=== PATIENT | female | born 2000 | race Caucasian/White ===

== ENCOUNTER 2022-09-19 14:01 | Outpatient (CLI) | payer OTHER, SELFPAY ==
--- NOTE | 2022-09-19 14:16 | XR_ITS ---
WS: [id number] Right knee, 4 views, 09/19/2022 Clinical Data: R KNEE PAIN Comparison: None. Findings: No fractures or dislocations are seen. The joint spaces are normal. The patella is intact. The soft t issues are unremarkable. XR/XR knee RT 4V [id number] Impression: Negative right knee. Kellgren-Jono Classification: NA
== END 2022-09-19 14:02 | disposition home or self-care (01) ==
PROVIDERS: PCP Nurse Practitioner Family; Visit Provider Nurse Practitioner Family
DX: M25.561 Pain in right knee (principal)
CPT/HCPCS: 73564

== ENCOUNTER 2022-11-07 14:20 | Outpatient (CLI) | payer OTHER, SELFPAY ==
[2022-11-07 15:29] LABS: Chol HDL Ratio 4.95 mg/dL (0.0-4.40); Cholesterol 193 mg/dL (0-200); Glucose 157 mg/dL (65-115); HDL Cholesterol 39 mg/dL (60-100); LDL Cholesterol Calculated 125 mg/dL (50-129); LDL HDL Ratio 3.21 RATIO (0.00-3.22); Triglycerides 146 mg/dL (0-150)
[2022-11-07 16:27] LABS: Estmated Average Glucose 94; Hemoglobin A1C 4.9 % (4.0-6.0)
== END 2022-11-07 14:21 | disposition home or self-care (01) ==
PROVIDERS: PCP Nurse Practitioner Family; Visit Provider Nurse Practitioner Family
DX: Z13.6 Encounter for screening for cardiovascular disorders (principal)
CPT/HCPCS: 36415; 80061; 82947; 83036

== ENCOUNTER 2023-06-08 11:36 | Outpatient (CLI) | payer OTHER, SELFPAY ==
--- NOTE | 2023-06-08 11:55 | XRR_ITS ---
PROCEDURE INFORMATION: Exam: XR Abdomen Exam date and time: 06/08/2023 11:57 AM Age: 23 years old Clinical indication: Nausea; Abdominal pain; Generalized; Patient HX: Abdomen pain for 1 month TECHNIQUE: Imaging protocol: Radiologic exam of the abdomen. Views: Frontal supine view of the abdomen. 1 View. COMPARISON: CT abdomen pelvis w con* [id number] 10/25/2017 11:03 PM FINDINGS: Gastrointestinal tract: Normal. No bowel dilation. Bones/joints: Unremarkable. XR/XR KUB [id number] IMPRESSION: No acute findings.
== END 2023-06-08 11:37 | disposition home or self-care (01) ==
PROVIDERS: PCP Nurse Practitioner Family; Visit Provider Nurse Practitioner Family
DX: R10.11 Right upper quadrant pain (principal)
CPT/HCPCS: 74018

== ENCOUNTER 2024-03-08 15:00 | Emergency (ER) | payer OTHER, SELFPAY ==
[2024-03-08 15:04] VITALS: BP 118/81; PULSE 130; RESP 18; TEMP 36.8; O2SAT 95; BMI 47.1
[2024-03-08 15:46] LABS: Basophils % 0.5 %; Eosinophils % 0.5 %; Hematocrit 40.6 % (36-47); Lymphocytes # 3.3 10^3/uL (0.8-4.8); Lymphocytes % 43.7 %; Mean Corpuscular Volume 87.5 fl (85-98); Mean Platelet Volume 9.8 fL (7.4-10.4); Monocytes # 0.8 10^3/uL (0.2-0.9); Monocytes % 10.3 %; Neutrophils % 44.6 %; Nucleated Red Blood Cells % 0 %; Platelet Count 260 10^3/cmm (157-399); Red Blood Count 4.64 10^6/uL (3.85-5.65); Red Cell Distribution Width 14.6 % (12.1-15.1); White Blood Count 7.64 10^3/uL (3.29-11.43)
[2024-03-08 15:53] LABS: Bilirubin Urine Neg (Negative); Blood Urine 3+ (Negative); Glucose Urine UA Norm (Normal); Ketones Urine 1+ (Negative); Nitrate Urine Positive (Negative); Protein Urine 3+ (Negative); Specific Gravity, Urine 1.015 (1.005-1.030); Urine Appearance Cloudy (CLEAR); Urine Color Yellow (Yellow); Urobilinogen Urine 1 mg/dL (Negative); pH Urine 6 (5-7)
[2024-03-08 15:54] LABS: Add Urine Microscopic? YES; Leukocyte Esterase Urine 2+ (Negative)
[2024-03-08 15:56] LABS: RBC Urine 50-80 /hpf (0-2); WBC Urine TOO NUMEROUS TO CNT /hpf (0-5)
[2024-03-08 15:57] LABS: Add Urine Culture? Yes; Bacteria Urine 3+ /hpf; Mucus Urine TRACE /hpf
[2024-03-08 15:59] LABS: HCG, Serum Qual Negative (Negative)
[2024-03-08 16:06] LABS: Alanine Aminotransferase 118 U/L (0-33); Albumin Level 3.8 g/dL (3.5-5.2); Alkaline Phosphatase 77 U/L (35-105); Anion Gap 17.7 (5-19); Aspartate Amino Transferase 94 U/L (0-32); Blood Urea Nitrogen 8 mg/dL (6-20); Calcium 9.3 mg/dL (8.5-10.5); Carbon Dioxide 23 mmol/L (22-29); Chloride 100 mmol/L (98-107); Creatinine Clr Calc Pharmacy 182.2363; Globulin 4.3 g/dL (1.3-4.6); Glomerular Filtration Rate 104.6 mL/min (90-130); Glucose 124 mg/dL (65-115); Lipase 21 U/L (13-60); Osmolality Calculated 284 mOsm/kg (285-295); Potassium 3.7 mmol/L (3.5-5.1); Sodium 137 mmol/L (136-145); Total Bilirubin 0.8 mg/dL (0.15-1.2); Total Protein 8.1 g/dL (6.6-8.7)
[2024-03-08 17:00] VITALS: BP 110/71; PULSE 76; RESP 16; O2SAT 96
--- NOTE | 2024-03-08 17:10 | CTR_ITS ---
PROCEDURE INFORMATION: Exam: CT Abdomen And Pelvis Without Contrast Exam date and time: 03/08/2024 5:17 PM Age: 23 years old Clinical indication: Abdominal pain; Localized; Right lower quadrant (rlq); Patient HX: Rlq pain that radiates into back/right flank area; Additional info: Right sided pain + hematuria TECHNIQUE: Imaging protocol: Computed tomography of the abdomen and pelvis without contrast. Radiation optimization: All CT scans at this facility use at least one of these dose optimization techniques: automated exposure control; mA and/or kV adjustment per patient size (includes targeted exams where dose is matched to clinical indication); or iterative reconstruction. COMPARISON: CT abdomen pelvis w con* [id number] 10/25/2017 11:03 PM RADIATION DOSE METRICS: Total DLP (mGy-cm): 1477 FINDINGS: Lungs: Lung bases are clear. No pleural effusion. Liver: Normal. No mass. Gallbladder and biliary ducts: Normal. No calcified stones. No ductal dilation. Pancreas: Normal. No ductal dilation. Spleen: Mild splenomegaly is noted. Adrenal glands: Normal. No mass. Kidneys and ureters: There is mild dilatation of the entire right ureter and the dilatation extends down to the bladder. I see no ureteral stone. Stomach and bowel: Unremarkable. No obstruction. No mucosal thickening. Appendix: No evidence of appendicitis. Intraperitoneal space: Unremarkable. No free air. No significant fluid collection. Vasculature: Unremarkable. No abdominal aortic aneurysm. Lymph nodes: Unremarkable. No enlarged lymph nodes. Urinary bladder: See Kidneys and ureters finding. Reproductive: Unremarkable as visualized. Bones/joints: Unremarkable. No acute fracture. Soft tissues: Unremarkable. CT/CT kidney stone [id number] IMPRESSION: 1. Mild right ureteral dilatation with no evidence of stone. This may be due to recent stone passage but I cannot exclude pyelonephritis 2. Stable splenomegaly
--- NOTE | 2024-03-08 17:10 | W.ED.ABDPA2 ---
HPI - Abdominal Pain General: Chief Complaint: Abdominal Pain Stated Complaint: lower right side abd pain Time Seen by Provider: 03/08/24 17:05 Source: patient Mode of arrival: ambulatory Limitations: no limitations History of Present Illness: Patient is a 23-year-old female presenting to the emergency department complaining of right-sided pain for the past 2 days. Patient states the pain is to her right lower abdomen and migrates into her right lower back across her right flank. She states that she has been taking ibuprofen and Tylenol and that this seems to help. She also reports that any movement whatsoever will worsen her pain, and it is improved with rest. She is not reporting any urinary symptoms at this time and has no history of kidney stones. She is noting some nausea, and states that her pain right now at rest is currently a 2/10. She does still have her appendix and gallbladder. She denies any changes in bowel habits, chest pain, breathing difficulties, palpitations, syncope, or any other symptoms at this time. MD elicited complaint: abdominal pain and flank pain Pertinent past history: none Onset (ago): day(s) Pain Consistency: constant Location: RLQ and R flank Pain scale (0-10): 2 Radiation: back Exacerbating factors: movement Relieving factors: medication and rest Associated Symptoms: Reports nausea; Denies chills, constipation, diarrhea, dysuria, fever(s), hematuria and vomiting Treatments prior to arrival: NSAIDs Review of Systems General: Reports: 10 or more systems reviewed and unremarkable except in HPI and below Const: Denies: fever(s), chills or fatigue Eyes: Denies: change in vision ENMT: Denies: throat pain, ear or mastoid pain or nasal discharge Card: Denies: chest pain, palpitations, swelling of feet/ankles or lightheadedness Resp: Denies: dyspnea, productive cough or wheezing GI: Reports: abdominal pain and nausea; Denies: vomiting, diarrhea or constipation : Reports: flank pain; Denies: difficulty voiding, dysuria, urinary frequency or hematuria Musc: Reports: back pain; Denies: neck pain or joint pain Skin/Breast: Denies: rash Neuro: Denies: headache(s), numbness in extremities or weakness in extremities Physical Exam Const: COMMON NORMALS: no acute distress, average body habitus, patient oriented x3, no limitations, healthy appearing, alert and well nourished GENERAL APPEARANCE: cooperative and comfortable NUTRITIONAL APPEARANCE: obese ORIENTATION/CONSCIOUSNESS: Yes awake HENMT: COMMON NORMALS: normocephalic, atraumatic, hearing grossly normal bilaterally, external ears normal, Normal external nose present, Normal nasal mucous membranes and turbinates present and moist oral mucous membranes HEAD & SCALP: normocephalic and atraumatic NOSE: Normal external nose present and Normal nasal mucous membranes and turbinates present EXTERNAL EAR: Yes external ears normal Eye: COMMON NORMALS: Equal, round and reactive pupils present, EOMs intact bilaterally, conjunctivae normal and normal visual mejia by confrontation CONJUNCTIVA: Yes conjunctivae normal PUPIL: Yes Equal, round and reactive pupils present Neck/C-Spine: COMMON NORMALS: full ROM, supple, no meningeal signs and no JVD Resp: COMMON NORMALS: normal respiratory effort, No retractions, No use of accessory muscles and clear to auscultation bilaterally AUSCULTATION: clear to auscultation bilaterally, no crackles, no rales, no rhonchi and no wheezes Cardio: COMMON NORMALS: no JVD, regular rate, regular rhythm, S1 normal heart sound present, S2 normal heart sound present, No gallops present (Cardio), No clicks present (Cardio), No murmurs present (Cardio), No rub (Cardio) and Peripheral pulses 2+ throughout RATE: regular rate RHYTHM: regular rhythm HEART SOUNDS: S1 normal heart sound present and S2 normal heart sound present PERIPHERAL PULSES: Peripheral pulses 2+ throughout GI: COMMON NORMALS: Normal to inspection, nondistended, normoactive bowel sounds present, Soft to palpation, No hepatosplenomegaly present and no masses INSPECTION: Yes central obesity AUSCULTATION: Yes normoactive bowel sounds PALPATION: Yes Soft to palpation, No Guarding due to palpation present (GI), No Rigid due to palpation and Yes No hepatosplenomegaly present RECTAL EXAM: deferred OTHER: Mild reproducible tenderness to palpation of the right upper and lower quadrants. : COMMON NORMALS: Yes no CVA tenderness BLADDER/KIDNEY EXAM: Yes no CVA tenderness Back/Pelvis: COMMON NORMALS: no CVA tenderness OTHER: Mild reproducible tenderness to palpation of the right lower lumbar muscles. Extremity: COMMON NORMALS: normal to inspection and full ROM Neuro: COMMON NORMALS: patient oriented x3, moves all extremities, no focal motor deficits and no sensory deficits noted SENSORIUM/ORIENTATION: Yes alert MENINGEAL SIGNS: Yes no meningeal signs Psych: COMMON NORMALS: mental status grossly normal, cooperative and speech normal SPEECH: Yes normal speech Skin: COMMON NORMALS: no rashes or lesions noted GENERAL SKIN EXAM: no rashes or lesions noted Course Vital Signs: Vital signs: Vital Signs Temperature 98.2 F 03/08/24 15:04 Pulse Rate 109 H 03/08/24 17:30 Respiratory Rate 18 03/08/24 17:30 Blood Pressure 112/85 03/08/24 17:30 Pulse Oximetry 95 03/08/24 17:30 Oxygen Delivery Me thod Room Air 03/08/24 17:30 MDM - Abdominal Pain Medical Decision Making Patient presented for 2 days of right-sided pain, no history of kidney stones or urinary symptoms. Also still has her gallbladder and appendix. On arrival she was tachycardic, likely secondary to pain. Her physical examination did reveal her to be in no acute distress, though there was some reproducible tenderness to palpation of the right lower abdomen and right lower back. Her blood work did not reveal any acute signs of active infection, and metabolic panel does not reveal any signs of acute kidney injury or other abnormality. Slight elevation in LFTs of which I told patient to follow-up with primary care for. Her urinalysis did reveal evidence of infection and presence of blood, so I ordered a CT to rule out kidney stone. The CT was negative for stone though did comment on potential passage of stone or active ascending urinary tract infection. Patient will be treated with ciprofloxacin and she will return with any new or worsening of symptoms. She is informed to increase her fluid intake and take Tylenol and ibuprofen at home as this has been working for her. Care of patient discussed with supervising ED physician, Dr. Shafer, who agrees with disposition at this time. Lab Data 03/08/24 15:39 03/08/24 15:39 Labs/Radiology: Radiology Impressions Abdomen/Pelvis CT 03/08/24 17:10 IMPRESSION: 1. Mild right ureteral dilatation with no evidence of stone. This may be due to recent stone passage but I cannot exclude pyelonephritis 2. Stable splenomegaly Laboratory Results WBC 7.64 10^3/uL (3.29-11.43) 03/08/24 15:39 RBC 4.64 10^6/uL (3.85-5.65) 03/08/24 15:39 Hgb 13.00 g/dL (11.27-16.99) 03/08/24 15:39 Hct 40.6 % (36-47) 03/08/24 15:39 MCV 87.5 fl (85-98) 03/08/24 15:39 MCH 28.0 pg (27-33) 03/08/24 15:39 MCHC 32.0 g/dL (30-55) 03/08/24 15:39 RDW 14.6 % (12.1-15.1) 03/08/24 15:39 Plt Count 260 10^3/cmm (157-399) 03/08/24 15:39 MPV 9.8 fL (7.4-10.4) 03/08/24 15:39 Neut % (Auto) 44.6 % 03/08/24 15:39 Lymph % (Auto) 43.7 % 03/08/24 15:39 [place] % (Auto) 10.3 % 03/08/24 15:39 Eos % (Auto) 0.5 % 03/08/24 15:39 Baso % (Auto) 0.5 % 03/08/24 15:39 Neut # (Auto) 3.40 10^3/uL (1.8-7.7) 03/08/24 15:39 Lymph # (Auto) 3.3 10^3/uL (0.8-4.8) 03/08/24 15:39 [place] # (Auto) 0.8 10^3/uL (0.2-0.9) 03/08/24 15:39 Eos # (Auto) 0.0 10^3/uL (0.0-0.8) 03/08/24 15:39 Baso # (Auto) 0.0 10^3/uL (0.0-0.1) 03/08/24 15:39 Nucleated RBC % (auto) 0 % 03/08/24 15:39 Nucleated RBCs # 0.0 /100WBC 03/08/24 15:39 Sodium 137 mmol/L (136-145) 03/08/24 15:39 Potassium 3.7 mmol/L (3.5-5.1) 03/08/24 15:39 Chloride 100 mmol/L (98-107) 03/08/24 15:39 Carbon Dioxide 23 mmol/L (22-29) 03/08/24 15:39 Anion Gap 17.7 (5-19) 03/08/24 15:39 BUN 8 mg/dL (6-20) 03/08/24 15:39 Creatinine 0.7 mg/dL (0.5-0.9) 03/08/24 15:39 GFR Calculation 104.6 mL/min (90-130) 03/08/24 15:39 Glucose 124 mg/dL (65-115) H 03/08/24 15:39 Calculated Osmolality 284 mOsm/kg (285-295) L 03/08/24 15:39 Calcium 9.3 mg/dL (8.5-10.5) 03/08/24 15:39 Total Bilirubin 0.8 mg/dL (0.15-1.2) 03/08/24 15:39 AST 94 U/L (0-32) H 03/08/24 15:39 ALT 118 U/L (0-33) H 03/08/24 15:39 Alkaline Phosphatase 77 U/L (35-105) 03/08/24 15:39 Total Protein 8.1 g/dL (6.6-8.7) 03/08/24 15:39 Albumin 3.8 g/dL (3.5-5.2) 03/08/24 15:39 Globulin 4.3 g/dL (1.3-4.6) 03/08/24 15:39 Lipase 21 U/L (13-60) 03/08/24 15:39 HCG, Qual Negative (Negative) 03/08/24 15:39 Urine Color Yellow (Yellow) 03/08/24 15:20 Urine Appearance Cloudy (CLEAR) A 03/08/24 15:20 Urine pH 6 (5-7) 03/08/24 15:20 Ur Specific [place] 1.015 (1.005-1.030) 03/08/24 15:20 Urine Protein 3+ (Negative) H 03/08/24 15:20 Urine Glucose (UA) Norm (Normal) 03/08/24 15:20 Urine Ketones 1+ (Negative) H 03/08/24 15:20 Urine Blood 3+ (Negative) H 03/08/24 15:20 Urine Nitrate Positive (Negative) H 03/08/24 15:20 Urine Bilirubin Neg (Negative) 03/08/24 15:20 Urine Urobilinogen 1 mg/dL (Negative) H 03/08/24 15:20 Ur Leukocyte Esterase 2+ (Negative) H 03/08/24 15:20 Urine RBC 50-80 /hpf (0-2) H 03/08/24 15:20 Urine WBC Too numerous to cnt /hpf (0-5) H 03/08/24 15:20 Ur Squamous Epith Cells 5-10 /hpf (0-5) H 03/08/24 15:20 Amorphous Sediment Not Reportable 03/08/24 15:20 Urine Bacteria 3+ /hpf (NONE) H 03/08/24 15:20 Urine Mucus Trace /hpf 03/08/24 15:20 All radiology interpretation(s) finalized by discharge Discharge Plan Discharge Patient Disposition: Home Clinical Impression: Pyelonephritis Condition: Stable Prescriptions: New Cipro 500 mg tablet 500 mg PO BID 10 Days Qty: 20 0RF Discharge Orders: Discharge ED (Routine); Ordered 03/08/24 Ordered By: Collin Gonzalez Referrals: Catherine Okeefe, [employer] [Primary Care Provider] - Discharge Diet: Usual diet Discharge Activity: Increase activity as tolerated Patient Instructions: Pyelonephritis Activity Restrictions/Additional Instructions: Take antibiotics as prescribed. Tylenol or ibuprofen at home for pain. Plenty of fluids. Follow-up with primary care and return with any new or worsening symptoms. Coding Level of Care Code ED Alternative Medicine Practitioner for Ayden Hernández
[2024-03-08] MEDS: metoclopramide 5 mg/mL SDV 2 mL 10 MG IVP (17:27)
[2024-03-08] MEDS: morphine 4 mg/mL SDV 1 mL IVP (17:27)
[2024-03-08 17:30] VITALS: BP 112/85; PULSE 109; RESP 18; O2SAT 95
[2024-03-08] MEDS: sodium chloride 0.9% 1,000 ML 999 ML IV (17:32)
[2024-03-08 18:00] VITALS: BP 98/65; PULSE 102; RESP 14; O2SAT 93
[2024-03-08] MEDS: ciprofloxacin 500 mg Tablet PO (18:07)
== END 2024-03-08 18:18 | disposition home or self-care (01) ==
PROVIDERS: Emergency Medicine; Emergency Provider Physician Assistant; PCP Nurse Practitioner Family
DX: N12 Tubulo-interstitial nephritis, not specified as acute or chronic (principal)
CPT/HCPCS: 36415; 74176; 80053; 81001; 83690; 84703; 85025; 87086; 96361; 96374; 96375; 99285; J2270; J2765; J7030

== ENCOUNTER 2024-03-24 02:37 | Emergency (ER) | payer OTHER, SELFPAY ==
[2024-03-24] VITALS (7 sets, daily range): BP systolic 94–139; BP diastolic 59–92; PULSE 62–115; RESP 15–18; O2SAT 95–100; BMI 47.0
--- NOTE | 2024-03-24 02:45 | USR_ITS ---
PROCEDURE INFORMATION: Exam: US Abdomen, Limited; Right Upper Quadrant Exam date and time: 03/24/2024 3:08 AM Age: 23 years old Clinical indication: Abdominal pain; Other: Ruq pain x 5 hours; Additional info: Right upper quadrant pain, concern for cholecystitis TECHNIQUE: Imaging protocol: Real time ultrasound of the abdomen with image documentation. Limited exam focused on the right upper quadrant. COMPARISON: US abdomen limited [id number] 09/25/2021 11:35 AM FINDINGS: Liver: Liver is diffusely increased in echogenicity, most commonly seen in hepatic steatosis, though other forms of parenchymal liver disease could have a similar appearance. This limits evaluation for subtle isoechoic masses but no masses are seen. Patent main portal vein with normal direction of flow. Gallbladder: Gallstones and sludge noted. Borderline wall thickening measuring 0.3 cm. Positive sonographic Lepe's sign. Biliary ducts: Normal. No stones. No dilation. Pancreas: Visualized pancreas is unremarkable. Right kidney: Normal. No mass. No hydronephrosis. US/US gall bladder [id number] IMPRESSION: 1. Imaging findings concerning for acute calculus cholecystitis. Further evaluation with HIDA scan should be considered in the adequate clinical setting. 2. Hyperechoic liver, which can be seen with fatty infiltration or hepatocellular disease.
--- NOTE | 2024-03-24 02:46 | ED_ITS ---
HPI - Abdominal Pain 2 General: Chief Complaint: Abdominal Pain Stated Complaint: Upper right abd pain Time Seen by Provider: 03/24/24 02:40 History of Present Illness: 23-year-old female who presents emergenc y room with right upper quadrant and epigastric pain with nausea and vomiting that started about 5 hours ago. She has had quite a bit of vomiting she says. Pain is fairly severe in her right upper quadrant. She has had no abdominal surgeries in the past. She was treated for pyelonephritis about 2 weeks ago and completed a 7-day course of antibiotics and had gotten better. She says this is completely different. No fevers. No chest pain. No shortness of breath. No dysuria. Review of Systems 2 Narrative: Constitutional symptoms: Negative except as documented in HPI. Skin symptoms: Negative except as documented in HPI. Eye symptoms: Negative except as documented in HPI. ENMT symptoms: Negative except as documented in HPI. Respiratory symptoms: Negative except as documented in HPI. Cardiovascular symptoms: Negative except as documented in HPI. Gastrointestinal symptoms: Negative except as documented in HPI. Genitourinary symptoms: Negative except as documented in HPI. Musculoskeletal symptoms: Negative except as documented in HPI. Neurologic symptoms: Negative except as documented in HPI. Psychiatric symptoms: Negative except as documented in HPI. Endocrine symptoms: Negative except as documented in HPI. Physical Exam 2 Narrative: EXAM NARRATIVE: General: Alert, no acute distress. Skin: Warm, dry. Head: Normocephalic, atraumatic. Neck: Supple, trachea midline. Eye: Extraocular movements are intact. Ears, nose, mouth and throat: Tacky oral mucosa Cardiovascular: Regular, Normal peripheral perfusion. Respiratory: Lungs are clear to auscultation, respirations are non-labored, breath sounds are equal, Symmetrical chest wall expansion. Gastrointestinal: Soft, moderate right upper quadrant tenderness, Non distended Musculoskeletal: Normal ROM, no deformity. Neurological: Alert and oriented, No focal neurological deficit observed. Psychiatric: Cooperative, appropriate mood & affect. Course 2 Vital Signs: Vital signs: Vital Signs Pulse Rate 69 03/24/24 05:03 Respiratory Rate 15 03/24/24 02:41 Blood Pressure 110/73 03/24/24 05:03 Pulse Oximetry 100 03/24/24 05:03 Oxygen Delivery Me thod Room Air 03/24/24 04:03 MDM - Abdominal Pain Medical Decision Making Differential diagnosis for patient presenting with right upper quadrant abdominal pain including but not limited to and based on the above HPI, review of systems and physical exam: Cholelithiasis or cholecystitis. Hepatitis. Diverticulitis. Constipation. Ureterolithiasis. Urinary tract infection. Appendicitis. colitis. small bowel obstruction. crohn's flare. pancreatitis. gastritis. peptic ulcer. Aortic disection. Workup including imaging and lab work replaced based on the above differential, history and exam to evaluate differential diagnosis Lab Review: Laboratory results were reviewed and interpreted by myself the emergency room physician. No leukocytosis. No anemia. BUN/creatinine are normal. Patient's liver function are mildly elevated and actually slightly decreased from lab work done about 2 weeks ago. Alk phos is not elevated. Ultrasound of the gallbladder shows findings concerning for acute calculus cholecystitis. This was reviewed and interpreted by myself the emergency room physician. I also reviewed the radiology report. I reviewed the patient's medical record. Reexamination: Patient says she feels quite a bit better after having Toradol and fluids. No acute distress at this time. No increased work of breathing. Consultation: I spoke with the general surgeon on-call . He agrees with Kim for antibiotics and observation admission. Assessment and plan: Acute calculus cholecystitis -IV Zosyn, IV Zofran, IV Toradol, normal saline bolus. -I discussed the patient with the general surgeon on-call who is admitting the patient. - Discussed findings and plan with patient. Answered any questions. - All laboratory values were reviewed and interpreted personally by myself, the ER physician - All imaging was reviewed and interpreted personally by myself, the ER physician. - Evaluation and treatment of this problem were appropriate in the emergency setting Lab Data 03/24/24 02:46 03/24/24 02:46 Labs/Radiology: Radiology Impressions Gallbladder Ultrasound 03/24/24 02:45 IMPRESSION: 1. Imaging findings concerning for acute calculus cholecystitis. Further evaluation with HIDA scan should be considered in the adequate clinical setting. 2. Hyperechoic liver, which can be seen with fatty infiltration or hepatocellular disease. Laboratory Results WBC 7.19 10^3/uL (3.29-11.43) 03/24/24 02:46 RBC 4.86 10^6/uL (3.85-5.65) 03/24/24 02:46 Hgb 13.40 g/dL (11.27-16.99) 03/24/24 02:46 Hct 42.2 % (36-47) 03/24/24 02:46 MCV 86.8 fl (85-98) 03/24/24 02:46 MCH 27.6 pg (27-33) 03/24/24 02:46 MCHC 31.8 g/dL (30-55) 03/24/24 02:46 RDW 14.3 % (12.1-15.1) 03/24/24 02:46 Plt Count 303 10^3/cmm (157-399) 03/24/24 02:46 MPV 10.1 fL (7.4-10.4) 03/24/24 02:46 Neut % (Auto) 43.1 % 03/24/24 02:46 Lymph % (Auto) 44.1 % 03/24/24 02:46 [place] % (Auto) 10.4 % 03/24/24 02:46 Eos % (Auto) 1.9 % 03/24/24 02:46 Baso % (Auto) 0.4 % 03/24/24 02:46 Neut # (Auto) 3.09 10^3/uL (1.8-7.7) 03/24/24 02:46 Lymph # (Auto) 3.2 10^3/uL (0.8-4.8) 03/24/24 02:46 [place] # (Auto) 0.8 10^3/uL (0.2-0.9) 03/24/24 02:46 Eos # (Auto) 0.1 10^3/uL (0.0-0.8) 03/24/24 02:46 Baso # (Auto) 0.0 10^3/uL (0.0-0.1) 03/24/24 02:46 Nucleated RBC % (auto) 0 % 03/24/24 02:46 Nucleated RBCs # 0.0 /100WBC 03/24/24 02:46 Sodium 138 mmol/L (136-145) 03/24/24 02:46 Potassium 3.9 mmol/L (3.5-5.1) 03/24/24 02:46 Chloride 104 mmol/L (98-107) 03/24/24 02:46 Carbon Dioxide 22 mmol/L (22-29) 03/24/24 02:46 Anion Gap 15.9 (5-19) 03/24/24 02:46 BUN 15 mg/dL (6-20) 03/24/24 02:46 Creatinine 0.8 mg/dL (0.5-0.9) 03/24/24 02:46 GFR Calculation 89.7 mL/min (90-130) L 03/24/24 02:46 Glucose 100 mg/dL (65-115) 03/24/24 02:46 Calculated Osmolality 287 mOsm/kg (285-295) 03/24/24 02:46 Lactic Acid 0.9 mmol/L (0.5-2.2) 03/24/24 02:46 Calcium 9.3 mg/dL (8.5-10.5) 03/24/24 02:46 Total Bilirubin 0.6 mg/dL (0.15-1.2) 03/24/24 02:46 AST 93 U/L (0-32) H 03/24/24 02:46 ALT 83 U/L (0-33) H 03/24/24 02:46 Alkaline Phosphatase 76 U/L (35-105) 03/24/24 02:46 C-Reactive Protein 3.2 mg/L (0.0-4.9) 03/24/24 02:46 Total Protein 8.3 g/dL (6.6-8.7) 03/24/24 02:46 Albumin 4.2 g/dL (3.5-5.2) 03/24/24 02:46 Globulin 4.1 g/dL (1.3-4.6) 03/24/24 02:46 Lipase 32 U/L (13-60) 03/24/24 02:46 HCG, Qual Negative (Negative) 03/24/24 02:49 Urine Color Yellow (Yellow) 03/24/24 02:49 Urine Appearance Slightly cloudy (CLEAR) 03/24/24 02:49 Urine pH 5 (5-7) 03/24/24 02:49 Ur Specific [place] 1.025 (1.005-1.030) 03/24/24 02:49 Urine Protein Trace (Negative) 03/24/24 02:49 Urine Glucose (UA) Norm (Normal) 03/24/24 02:49 Urine Ketones 1+ (Negative) H 03/24/24 02:49 Urine Blood Neg (Negative) 03/24/24 02:49 Urine Nitrate Negative (Negative) 03/24/24 02:49 Urine Bilirubin Neg (Negative) 03/24/24 02:49 Urine Urobilinogen 1 mg/dL (Negative) H 03/24/24 02:49 Ur Leukocyte Esterase Trace (Negative) H 03/24/24 02:49 Urine RBC None /hpf (0-2) 03/24/24 02:49 Urine WBC 0-4 /hpf (0-5) H 03/24/24 02:49 Ur Squamous Epith Cells 5-10 /hpf (0-5) H 03/24/24 02:49 Amorphous Sediment Not Reportable 03/24/24 02:49 Urine Bacteria 1+ /hpf (NONE) H 03/24/24 02:49 All radiology interpretation(s) finalized by discharge Discharge Plan Discharge Patient Disposition: Placed in Observation Clinical Impression: Acute cholecystitis Coding Level of Care Code ED Architectural Engineer for Ayden Hernández
[2024-03-24 02:52] LABS: Basophils % 0.4 %; Eosinophils # 0.1 10^3/uL (0.0-0.8); Eosinophils % 1.9 %; Hematocrit 42.2 % (36-47); Lymphocytes # 3.2 10^3/uL (0.8-4.8); Lymphocytes % 44.1 %; Mean Corpuscular HGB Conc 31.8 g/dL (30-55); Mean Corpuscular Hemoglobin 27.6 pg (27-33); Mean Corpuscular Volume 86.8 fl (85-98); Mean Platelet Volume 10.1 fL (7.4-10.4); Monocytes # 0.8 10^3/uL (0.2-0.9); Monocytes % 10.4 %; Neutrophils # 3.09 10^3/uL (1.8-7.7); Neutrophils % 43.1 %; Nucleated Red Blood Cells % 0 %; Platelet Count 303 10^3/cmm (157-399); Red Blood Count 4.86 10^6/uL (3.85-5.65); Red Cell Distribution Width 14.3 % (12.1-15.1); White Blood Count 7.19 10^3/uL (3.29-11.43)
[2024-03-24 02:58] LABS: HCG Qualitative Urine. Negative (Negative)
[2024-03-24] MEDS: sodium chloride 0.9% 1,000 ML 999 ML IV (02:58)
[2024-03-24] MEDS: ketorolac 30 mg/mL INJ IVP (02:58)
[2024-03-24] MEDS: ondansetron 2 mg/ML SDV 2 mL 8 MG IVP (02:59)
[2024-03-24 03:10] LABS: Add Urine Culture? No; Bacteria Urine 1+ /hpf; Bilirubin Urine Neg (Negative); Blood Urine Neg (Negative); Glucose Urine UA Norm (Normal); Ketones Urine 1+ (Negative); Leukocyte Esterase Urine Trace (Negative); Nitrate Urine Negative (Negative); Protein Urine Trace (Negative); Specific Gravity, Urine 1.025 (1.005-1.030); Urine Appearance Slightly Cloudy (CLEAR); Urine Color Yellow (Yellow); Urobilinogen Urine 1 mg/dL (Negative); WBC Urine 0-4 /hpf (0-5); pH Urine 5 (5-7)
[2024-03-24 03:13] LABS: Alanine Aminotransferase 83 U/L (0-33); Albumin Level 4.2 g/dL (3.5-5.2); Alkaline Phosphatase 76 U/L (35-105); Anion Gap 15.9 (5-19); Aspartate Amino Transferase 93 U/L (0-32); Blood Urea Nitrogen 15 mg/dL (6-20); C Reactive Protein 3.2 mg/L (0.0-4.9); Calcium 9.3 mg/dL (8.5-10.5); Carbon Dioxide 22 mmol/L (22-29); Chloride 104 mmol/L (98-107); Creatinine Clr Calc Pharmacy 159.1413; Globulin 4.1 g/dL (1.3-4.6); Glomerular Filtration Rate 89.7 mL/min (90-130); Glucose 100 mg/dL (65-115); Lipase 32 U/L (13-60); Osmolality Calculated 287 mOsm/kg (285-295); Potassium 3.9 mmol/L (3.5-5.1); Sodium 138 mmol/L (136-145); Total Bilirubin 0.6 mg/dL (0.15-1.2); Total Protein 8.3 g/dL (6.6-8.7)
[2024-03-24 03:14] LABS: Lactic Sepsis W/Reflex 0.9 mmol/L (0.5-2.2)
[2024-03-24] MEDS: piperacillin-tazobactam 4.5 GM in sodium chloride 0.9% (plus) 50 ML IV (05:09)
--- NOTE | 2024-03-24 05:23 | PC.NURSE ---
Dr Celeste gave this nurse verbal order to put in order 4mg morphine once IVP and 4mg zofran once IVP.
[2024-03-24] MEDS: morphine 4 mg/mL SDV 1 mL IVP (05:27)
[2024-03-24] MEDS: ondansetron 2 mg/ML SDV 2 mL 4 MG IVP (05:28)
--- NOTE | 2024-03-24 05:57 | P.CONIM_ITS ---
Providers/Reason For Consult 2 Consulting Physician/Specialty*: General surgery Reason for Consult*: Right upper quadrant pain Primary Care Provider: Catherine Okeefe History of Present Illness History of Present Illness Alis Medellin is a 23 year old female with no significant past medical history except for obesity grade II. Presents to the hospital with about 5 hours of right upper quadrant abdominal pain nausea and vomiting. Per patient report she ate some fajitas yesterday at the [employer] restaurant and after that she started to have severe right upper quadrant abdominal pain associated with an episode of vomiting. Upon presentation to the emergency department she underwent ultrasound gallbladder which was read as having findings that may represent acute cholecystitis and therefore I was consulted. At the moment of my evaluation patient's symptoms have subsided abdominal pain has resolved. Review of Systems 2 General: Reports: 10 or more systems reviewed and unremarkable except in HPI and below Medications/Allergies Home Medications Medication Instructions Recorded Confirmed Last Taken Type amoxicillin 400 mg/5 mL oral 400 mg (5 mL) PO BID 7 days #70 mL 03/24/24 Unknown Rx suspension amoxicillin 875 mg-potassium 1 tab PO BID 10 days #20 tabs 03/24/24 Unknown Rx clavulanate 125 mg tablet diclofenac sodium 50 mg 50 mg PO Q12H #20 tabs 03/24/24 Unknown Rx tablet,delayed release diclofenac sodium 50 mg 50 mg PO Q12H #20 tabs 03/24/24 Unknown Rx tablet,delayed release hydrocodone 5 mg-acetaminophen 325 1 tab PO Q6H PRN pain #20 tabs 03/24/24 Unknown Rx mg tablet pantoprazole 40 mg tablet,delayed 40 mg PO DAILY 4 weeks #60 tabs 03/24/24 Unknown Rx release (Protonix) polyethylene glycol 3350 17 17 g PO DAILY #510 grams 03/24/24 Unknown Rx gram/dose oral powder (Miralax) Allergies Allergy/AdvReac Type Severity Reaction Status Date / Time Wheat Allergy Intermediate rash Uncoded 11/07/22 13:51 Vitals/I&O/Wt Last Vital Signs Pulse 69 03/24/24 05:03 Resp 18 03/24/24 05:27 BP 110/73 03/24/24 05:03 Pulse Ox 98 03/24/24 05:27 O2 Del Method Room Air 03/24/24 04:03 03/23/24 03/23/24 03/24/24 14:59 22:59 06:59 Intake Total 1000 / 1000 Balance 1000 / 1000 Weight last 48 hrs Weight 300 lb Physical Exam 2 Narrative: General : Patient is well developed , no acute distress, oriented x3 Head : Normal cephalic, a-traumatic. Nose : Mucous membranes are without erythema. Lungs : Equal chest rise bilaterally, no use of accessory muscles, trachea is midline. CV : Rate and rhythm are normal. Abdomen : Soft, ND, NT, no g/r/m Extremities : No edema. Upper extremities are normal bilaterally. Back : non-tender to palpation, no CVA tenderness. Data 03/24/24 02:46 03/24/24 02:46 A&P Assessment and plan (1) Biliary colic: (2) Cholelithiasis: Plan After complete history, physical examination and review of all available clinical data the following is my assessment. This is a 23-year-old female who presents to the hospital with right upper quadrant pain after having a very fatty heavy meal. Laboratory workup is unremarkable except for mild ovation of AST and ALT which are consistent with possibility of fatty liver disease. The ultrasound was read as a possible cholecystitis but my independent review of the imaging is the following, wall is only 3 mm, there is no pericholecystic fluid there is some is large and small stones in the gallbladder but otherwise no evidence of acute cholecystitis. Ultrasound findings do not meet criteria for acute cholecystitis at this time. Ultrasound also show evidence of fatty liver. We told his clinical findings and the fact that the patient abdominal exam has significantly improved by taking she presented with an episode of biliary colic rather than acute cholecystitis, the patient does not meet criteria for acute cholecystitis following TG18. I have extensive discussion with the patient regarding her overall health I have informed her that she will need to follow a low-fat, low processed food diet in order to improve her overall health and prevent worsening of her fatty liver and I do think that she will require gallbladder surgery that can be done as outpatient for symptomatic cholelithiasis. In the interim we will give her a short course of antibiotics and pain medication she received diet indications and is agreeable to follow with in the long-term. Patient can follow-up in my clinic in 1 to 2 weeks and then we can discuss timing for surgery. Coding Level of Care Code 18410 Diagnoses Biliary colic K80.50 Cholelithiasis K80.20
== END 2024-03-24 05:50 | disposition home or self-care (01) ==
PROVIDERS: Emergency Provider Emergency Medicine; PCP Nurse Practitioner Family
DX: K80.00 Calculus of gallbladder with acute cholecystitis without obstruction (principal)
CPT/HCPCS: 76705; 80053; 81001; 81025; 83605; 83690; 85025; 86140; 96361; 96374; 96375; 96376; 99285; J1885; J2270; J2405; J2543; J7030

== ENCOUNTER 2024-04-18 07:24 | Day surgery (SDC) | payer OTHER, SELFPAY ==
[2024-04-18] VITALS (16 sets, daily range): BP systolic 105–132; BP diastolic 69–88; PULSE 74–110; RESP 13–20; TEMP 36.6–36.7; O2SAT 91–100; BMI 43.0
[2024-04-18 07:54] LABS: OR HCG Qualitative Urine Negative (Negative)
[2024-04-18] MEDS: sodium chloride 0.9% 1,000 ML 30 ML IV (08:20)
[2024-04-18] MEDS: scopolamine 1.5 Patch 1 PATCH TRANSDERMA (08:20)
--- NOTE | 2024-04-18 08:34 | ANES.PREANE2 ---
Pre-Anesthetic Assessment Height/Weight: Height 1.7 m Weight 124.738 kg BP O2 Del Method 128/83 Room Air 04/18/24 08:20 04/18/24 08:03 Operation Date: 04/18/24 09:10 Proposed Procedures p Laparoscopic Cholecystectomy/ possible open 52213, 44600, K82.9(Not Applicable) - Collin Dixon MD Familial anesthetic complications: none Was Beta Mert taken within 24 hours: N/A Was Clonidine taken within 24 hours: N/A Last intake: Intake Last Liquid Date 04/17/24 Last Liquid Time 21:00 Last Solid Date 04/17/24 Last Solid Time 15:00 Social No alcohol and No tobacco Exam alert, oriented x 3, clear to auscultation bilaterally and regular rate & rhythm Airway Submandibular: within normal limits Cervical ROM: within normal limits Mallampati: Class II Dentition: full History/ROS No significant history except as noted Metabolic Morbid Obesity Anesthetic Plan ASA status: 2 Anesthesia: General Medications/Allergies Home Medications Medication Instructions Recorded Confirmed Last Taken Type hydrocodone 5 mg-acetaminophen 325 1 tab PO Q6H PRN pain #20 tabs 03/24/24 04/15/24 Unknown Rx mg tablet pantoprazole 40 mg tablet,delayed 40 mg PO DAILY 4 weeks #60 tabs 03/24/24 04/15/24 04/15/24 Rx release (Protonix) polyethylene glycol 3350 17 17 g PO DAILY #510 grams 03/24/24 04/15/24 Unknown Rx gram/dose oral powder (Miralax) meloxicam 15 mg tablet 15 mg PO DAILY 7 days #7 tabs 03/30/24 04/15/24 Unknown Rx ondansetron HCl 4 mg tablet 4 mg PO Q8H PRN nausea and 03/30/24 04/15/24 Unknown Rx vomiting 14 days #30 tabs Allergies Allergy/AdvReac Type Severity Reaction Status Date / Time Wheat Allergy Intermediate rash Uncoded 04/15/24 13:09 Current Medications Generic Name Dose Route Start Last Admin Trade Name Freq PRN Reason Stop Dose Admin Sodium Chloride 1,000 mls @ 30 mls/hr 04/18/24 07:45 04/18/24 08:20 Sodium Chloride 0.9% IV 04/19/24 07:44 30 mls/hr .Q24H GAIL Administration PFSH Anesthesia Social History Smoking and tobacco/nicotine status: never used tobacco/nicotine Data Anesthesia Cardiac Studies: Holter Monitor 11/10/22
--- NOTE | 2024-04-18 08:38 | W.PM.OPSUD ---
Surgery/Procedure H&P Update DATE OF PROCEDURE: April 18, 2024 DATE H&P PERFORMED: 03/30/24 H&P UPDATE INFORMATION: I have reviewed H&P completed within last 30 days, I have examined patient prior to procedure, No changes to prior documentation and H&P is in [facility] EMR on date indicated PLANNED PROCEDURE: Operation Date: 04/18/24 09:10 Proposed Procedures p Laparoscopic Cholecystectomy/ possible open 02225, 10605, K82.9(Not Applicable) - Collin Dixon MD
[2024-04-18] MEDS: ceFAZolin 3,000 MG in sodium chloride 0.9% (plus) 100 ML 200 MG IV (08:52)
[2024-04-18] MEDS: lidocaine-epi 1% PF 1:200,000 30 mL SDV 10 ML INJECTION (09:23)
[2024-04-18] MEDS: BUPivacaine 0.25% INJ 10 mL INJECTION (09:23)
--- NOTE | 2024-04-18 10:43 | P.OP_ITS ---
Operative Report Date of procedure: April 18, 2024 Pre-op diagnosis: Symptomatic cholelithiasis Post-op diagnosis: Same Post-op findings: Anterior cystic artery, significant inflammation at the level of the Calot's triangle Procedure done: Laparoscopic cholecystectomy Specimens removed/disposition: Gallbladder Surgeon: Collin Dixon MD Insulation Board Coater Operator: SAKSHI OR staff Estimated blood loss: 10 Brief History: 24-year-old female with history of symptomatic cholelithiasis who presents for laparoscopic hysterectomy after discussion of all risk and benefits. Procedure: Patient was brought into the OR, she was placed in a supine position. General anesthesia was given. The abdomen was prepped and draped in the usual sterile fashion. Timeout was conducted. The abdomen was accessed with an Optiview 5 mm trocar in the left upper quadrant, pneumoperitoneum was achieved and there was no evidence of visceral injury during entry. Additional 12 mm trocar was placed in the suprapubic umbilical location under direct visualization, additional 5 mm trocars were placed in the epigastrium right upper quadrant and right flank under direct visualization. The gallbladder was retracted cephalad, I then took down some adhesions from the omentum and the duodenum to the infundibulum this was done with blunt dissection. Then grabbed the infundibulum and retracted on the inferolateral direction, significant fat infiltration of the hepatocystic tr iangle was noted, the peritoneum anterior to the hepatocystic triangle was opened with electrocautery, this opening was covering the medial and lateral direction to the edges of the liver and then up to the site of the gallbladder to achieve better visualization. With careful dissection of the hepatocystic triangle I was able to notify the cystic duct and artery, the cystic artery was anterior to the dog and therefore I had to transected before proceeding with additional dissection, I did this by double clipped and the artery proximal and single clipped distally and then I cut. Additional careful dissection with blunt and sharp dissection was done the hepatocystic triangle, this level significant lamination was noted, I was able to individualize the cystic duct elevate the lower third of the gallbladder from the liver bed does not show any critical view of safety. The duct was topically proximally and single clipped distally and transected, the gallbladder was removed from the liver bed with electrocautery. The abdomen was irrigated and suction. The specimen was retrieved via the umbilical trocar site in an Endo Catch bag. The supraumbilical trocar site was then closed under direct visualization with a Delio-Han suture passer, this was done with #0 Vicryl. The epigastric right upper quadrant and right flank trocars were removed under direct visualization, the left upper quadrant trocar was used to acquire the pneumoperitoneum and subsequently removed. Wounds were closed in layers using 4 Monocryl for the skin. Dermabond was applied. At the end of the procedure all counts were correct the patient tolerated well the procedure and was transferred to PACU in stable condition.
[2024-04-18] MEDS: ondansetron 2 mg/ML SDV 2 mL 4 MG IVP ×2 (11:15→11:26)
[2024-04-18] MEDS: oxyCODONE 5 mg IR Tab/Cap PO (12:05)
--- NOTE | 2024-04-18 12:10 | ANE.PACU2 ---
Inpatient post-anesthesia follow up: Airway intact: Yes Vital signs: Temperature 98.0 F Pulse Rate 77 Respiratory Rate 13 Blood Pressure 114/77 Pulse Oximetry 95 Oxygen Delivery Me thod Room Air Oxygen Flow Rate 8 Fraction of Inspir ed Oxygen Hydration adequate: Yes Nausea and vomiting: No Pain level: 4 Mental status: Baseline
== END 2024-04-18 11:51 | disposition home or self-care (01) ==
PROVIDERS: Anesthesiology; PCP Nurse Practitioner Family; Visit Provider Surgery
PROC: 0FT44ZZ Resection of Gallbladder, Percutaneous Endoscopic Approach (ICD-10-PCS; CPT 47562; principal; 2024-04-18 09:00)
DX: K80.10 Calculus of gallbladder with chronic cholecystitis without obstruction (principal); E66.01 Morbid (severe) obesity due to excess calories; Z68.41 Body mass index [BMI] 40.0-44.9, adult
CPT/HCPCS: 47562; 81025; 88304; J0330; J0461; J0690; J1100; J1170; J1200; J1885; J2250; J2371; J2405; J2704; J2710; J3010; J3490; J7030

== ENCOUNTER → 2024-10-10 12:24 | Outpatient (BNVA) | payer OTHER, SELFPAY | PROVIDERS: PCP Nurse Practitioner Family; Visit Provider Nurse Practitioner Family | DX: R68.89 Other general symptoms and signs (principal); J10.1 Influenza due to other identified influenza virus with other respiratory manifestations | CPT/HCPCS: 87804 ==

== ENCOUNTER 2025-05-27 15:56 | Emergency (ER) | payer OTHER, SELFPAY ==
--- OUTSIDE RECORDS SUMMARY | 2025-03-10 08:15 | XMS_ITS | Continuity of Care Document ---
Author Organization [employer] [facility] Address [address] [place] [address] Phone Care Team Providers Care Color Drum Worker Name Role Phone Patricia Antoine Unavailable Unavailabl e Allergies, Adverse Reactions, Alerts Substance Reaction Status Criticality No Known Allergies Active No Inform ation Medications Medication Instructions Dosage Effective Dates (start - stop) Status Comments clotrimazole-betamethason e 1 %-0.05 % topical cream apply by topical route 2 times every day to the affected and surrounding areas of skin in the morning and evening as needed - Active medroxyprogesterone 150 mg/mL intramuscular suspension Administered in the office - No Longer Active Procedures Procedure Date Depo-Provera (medroxyprogesterone acetat e), per 1 mg URINE TEST OFFICE/OUTPATIENT VISIT EST Ther/Proph/Diag Injection - SC/IM Depo-Provera (medroxyprogesterone acetat e), per 1 mg OFFICE/OUTPATIENT NURSE VISIT EST Ther/Proph/Diag Injection - SC/IM Depo-Provera (medroxyprogesterone acetat e), per 1 mg Ther/Proph/Diag Injection - SC/IM OFFICE/OUTPATIENT NURSE VISIT EST Depo-Provera (medroxyprogesterone acetat e), per 1 mg Ther/Proph/Diag Injection - SC/IM OFFICE/OUTPATIENT NURSE VISIT EST Depo-Provera (medroxyprogesterone acetat e), per 1 mg Ther/Proph/Diag Injection - SC/IM OFFICE/OUTPATIENT NURSE VISIT EST URINE TEST OFFICE/OUTPATIENT VISIT EST URINE TEST OFFICE/OUTPATIENT VISIT EST Depo-Provera (medroxyprogesterone acetat e), per 1 mg Ther/Proph/Diag Injection - SC/IM NOT SEEN TODAY/NO CHARGES URINE TEST OFFICE/OUTPATIENT VISIT NEW Depo-Provera (medroxyprogesterone acetat e), per 1 mg Ther/Proph/Diag Injection - SC/IM Periodic Oral Evaluation- Established Pa tient Prophylaxis - Adult Topical Application Of Fluoride - Exclud ing Varnish Oral Hygiene Instruction Periodic Oral Evaluation- Established Pa tient Bitewings - Four Radiographic Images Feb Panoramic Radiographic Image Prophylaxis - Adult Results Test Name Date and Time Measure Units Reference Range Abnormal Flag Status Commen ts Panel Description: TEST, URINE Final TEST, URINE NEGATIVE negative Final TEST, URINE POSITIVE Final Advance Directives Directive Yes / No Effective Date File Name No Information Encounters Encounter Description Practice Location Reason(s) For Visit Diagnoses Date Provider Providers Copied on Encounter OFFICE/OUTPA TIENT VISIT EST [facility], [address] , [place], [place], [id number], [place] tel:[phone] [facility] ring worm (chief complaint) Encounter for surveillance of injectable contraceptiveEncou nter for test NOSBody mass index (BMI) 26.0-26.9, adultRingworm of body Romario-2 7-202 5 Rafael Gomez. [address], [place], [id number], [place]. tel:[phone] OFFICE/OUTPA TIENT NURSE VISIT [facility], [address] , [place], [place], [id number], [place] tel:[phone] [facility] Depo Inj (chief complaint) Encounter for surveillance of injectable contraceptive 5 Rafael Gomez. [address], [place], [address], [place]. tel:[phone] OFFICE/OUTPA TIENT NURSE VISIT [facility], [address] , [place], [place], [id number], [place] tel:[phone] [facility] Depo injection (chief complaint) Encounter for surveillance of injectable contraceptive 4 Rafael Gomez. [address], [place], [id number], [place]. tel:[phone] OFFICE/OUTPA TIENT NURSE VISIT [facility], [address] , [place], [place], [address], [place] tel:[phone] [facility] Encounter for surveillance of injectable contraceptive 4 Rafael Gomez. [address], [place], [address], [place]. tel:[phone] OFFICE/OUTPA TIENT NURSE VISIT [facility], [address] , [place], [place], [address], [place] tel:[phone] [facility] test/depo shot (chief complaint) Encounter for surveillance of injectable contraceptive 4 Rafael Gomez. [address], [place], [address], [place]. tel:[phone] [facility], [address] [place], [place], [address], [place] tel:[phone] [facility] No Information 4 Rafael Gomez. [address], [place], [id number], [place]. 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 [address], [place], [id number], [place]. tel:[phone] OFFICE/OUTPA TIENT VISIT [facility], [address] , [place], [place], [address], [place] tel:[phone] [facility] Restart BC (chief complaint) Encounter for test NOSEncounter for surveillance of injectable contraceptiveBody mass index (BMI) 26.0-26.9, adult Mar- 4 Rafael Gomez. [address] [place], [address], [place]. tel:[phone] [facility], [address] , [place], [place], [address], [place] tel:[phone] [facility] No Information 4 Rafael Gomez. [address], [place], [id number], [place]. tel:[phone] OFFICE/OUTPA TIENT VISIT [facility], [address] [place], [place], [address], [place] tel:[phone] [facility] Est care (chief complaint) Encounter for surveillance of injectable contraceptiveEncou nter for test 3 Rafael Gomez. [address] [place], [address], [place]. tel:[phone] [facility], [address] [place], [place], [address], [place] tel:[phone] [facility] No Information 0 7 She Acosta. [address] [place] [address], [id number], [place]. tel:[phone] [facility], [address] , [place], [place], [address], [place] tel:[phone] [facility] No Information She Acosta. [address] [place], [id number], [place]. tel:[phone] Family History Family Member Type Diagnosis Age At Onset No Information Payers Payer name Insurance type Covered constitution party ID Luis arnold(s) Self Pay Insurance Plan [id number] Social History Type Description Quantity Date Captured Comments Alcohol Use Details Caffeine Use Details and soda Tobacco Use Status Current non-smoker Smoking Status Never smoker Non-Smoking Tobacco Use Details : No Details Available : No Details Available Sex Female Sexual Orientation Straight or heterosexual Gender Identity Female Vital Signs Date / Time: Height Weight BMI Pulse Rate Blood Pressure Temperature Respiratory Rate Body Surface Area Head Circumference Head Circ. Percentile Wt./Karlos. Percentile BMI percentile Pulse Ox Inhaled Ox 1:27 PM 61.00 in 62.959 kg (138.80 lbs) 26.2 3 kg/m eter (2) 88 /min 122/80 mm[Hg] 97.80 F 18 /min 99 % 21 % Chief Complaint And Reason For Visit From encounter dated '03/10/2025 13:15'. ring worm (chief complaint). Description: [facility] Patricia Hall NP. Patient has ringworm x 3 spots for several months, has been trying some yniz-ink-isqicgq cream every now and then but not helping. Patient thinks shemay have got the ringworm from her dog. Reason For Referral Reason For Referral No Information Plan Of Treatment Date Type Action Status Goal Tdap. Due on due Goal Unhealthy drug use screening . Due on due Goal Td vaccine. Due on due Goal Depression screening. Due on due Goal PAP. Due on due Goal HPV (1st). Due on due Goal Hepatitis C screening. Due o n due Goal Influenza vaccine. Due on due Goal Dietary management education , guidance, and counseling completed Goal PAP. Due on due Goal Tdap. Due on due Goal Td vaccine. Due on due Goal Influenza vaccine. Due on due Goal Hepatitis C screening. Due o n due Goal Depression screening. Due on due Goal HPV (1st). Due on due Goal Unhealthy drug use screening . Due on due Goal Influenza vaccine. Due on due Goal Tdap. Due on due Goal HPV (1st). Due on due Goal Td vaccine. Due on due Goal Hepatitis C screening. Due o n due Goal Unhealthy drug use screening . Due on due Goal Depression screening. Due on due Goal PAP. Due on due Goal HPV (1st). Due on due Goal Hepatitis C screening. Due o n due Goal Unhealthy drug use screening . Due on due Goal Influenza vaccine. Due on due Goal Depression screening. Due on due Goal PAP. Due on due Goal Tdap. Due on due Goal Td vaccine. Due on due Goal Influenza vaccine. Due on due Goal Tdap. Due on due Goal HPV (1st). Due on due Goal Depression screening. Due on due Goal Hepatitis C screening. Due o n due Goal PAP. Due on due Goal Unhealthy drug use screening . Due on due Goal Td vaccine. Due on due Goal Tdap. Due on due Goal Influenza vaccine. Due on due Goal HPV (1st). Due on due Goal Hepatitis C screening. Due o n due Goal Unhealthy drug use screening . Due on due Goal Td vaccine. Due on due Goal PAP. Due on due Goal Depression screening. Due on due Goal Hepatitis C screening. Due o n due Goal Td vaccine. Due on due Goal Depression screening. Due on due Goal HPV (1st). Due on due Goal Influenza vaccine. Due on due Goal PAP. Due on due Goal Tdap. Due on due Goal Unhealthy drug use screening . Due on due Goal Lifestyle education regardin g diet completed Goal Influenza vaccine. Due on Oc due Goal Hepatitis C screening. Due o n due Goal HPV (1st). Due on due Goal PAP. Due on due Goal Tdap. Due on due Goal Td vaccine. Due on due Goal Unhealthy drug use screening . Due on due Goal Depression screening. Due on due History Of Present Illness Encounter Date Complaint History Of Prese nt Illness ring worm Patient presents to [facility] clinic for acute care appointment with Patricia Hall NP. Patient has ringworm x 3 spots for several months, has been trying some gcyy-fom-wlpnwsu cream every now and then but not helping. Patient thinks she may have got the ringworm from her dog. Depo Inj Depo injection test/depo shot [facility] Patient presents to [facility] clinic for well woman exam with Patricia Hall NP Restart BC Pt is here to re start control. Pt is wanting to use Depo as her preferred form. [facility] care Patient presents to [facility] clinic for acute care appointment with Patricia Hall NP. Patient is here to be started on Depo injection for prevention. Patient is currently sexually active, denies any STI screening needs today. Patient has been on Depo injection in the past and had no concerns. Functional Status Date Functional Assessmen t Pain Score 0/10 Instructions Date Instruction Additional Infor dana Fungal infections ar e very difficult due to resistance and can take many weeks to months to healIdentify cause (pet, environment, surface) an avoid/removeMaintain good skin hygieneAvoid prolonged wet clothes/shoes on skinDry between toes/fingers/crevices after washingAvoid bare foot in public areaAvoid sharing clothing, sports equipment, towels, etcTopical treatment preferred but in some cases oral antifungals may be neededRULE of 2's : apply treatment 2 times a day, 2 times size of lesion, 2 weeks--then recheck monthly Related to Ringworm of body Giving encouragement to exercise Related to Body mass index [BMI] 26.0-26.9, adult Dietary management e ducation, guidance, and counseling Related to Body mass index [BMI] 26.0-26.9, adult Lifestyle education regarding di et Related to Body mass index [BMI] 26.0-26.9, adult Assessments Type Assessment Date assessment Encounter for surveillance of in jectable contraceptive assessment Encounter for test NOS assessment Body mass index [BMI] 26.0-26.9, adult assessment Ringworm of body Patient Care Teams Name Effective Dates (start - stop) Status Members No Information
--- OUTSIDE RECORDS SUMMARY | 2025-05-27 16:01 | XMS_ITS | Encounter Summary ---
Author Organization 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
--- OUTSIDE RECORDS SUMMARY | 2025-05-27 16:01 | XMS_ITS | Encounter Summary ---
Author Organization [facility] Address [address] [place] [address] Care Team Providers Care Crm Business Analyst Name Role Phone Ruby Monae MD Primary Care Provider +8- [phone] Encounter Details Date Type Department Care Team (Late st Contact Info) Description 09/12/2004 Outpatient Historical [facility] Urology- [address] Entrance B, 3rd [place] [address] Gene Baumann MD NO ADDRESS ON FILE URIN TRACT INFECTION NOS (Primary Dx) Social History Tobacco Use Types Packs/Day Years Used Date Smoking Tobacco: Never Assessed Comments Unknown Sex and Gender Information Value Date Recorded Sex Assigned at Not on file Legal Sex Female 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
--- OUTSIDE RECORDS SUMMARY | 2025-05-27 16:01 | XMS_ITS | Encounter Summary ---
Author Organization [employer] [facility] Address [address] [place] [address] Care Team Providers Care Prop Drawer Name Role Phone Ruby Monae MD Primary Care Provider +1- [phone] Encounter Details Date Type Department Care Team (Late st Contact Info) Description 11/25/2011 Ancillary Orders [employer] [place] [address] [place] [address] Moraima Haynes MD [address] [place] [address] Pain, acute due to trauma Social History Tobacco Use Types Packs/Day Years Used Date Smoking Tobacco: Never Assessed Alcohol Use Standard Drinks/Week Comments No 0 (1 standard drink = 0.6 oz pur e alcohol) Comments No Sex and Gender Information Value Date Recorded Sex Assigned at Not on file Legal Sex Female 5:13 AM DEAN OF MEN Gender Identity Not on file Sexual Orientation Not on file Occupation Industry Job Start Date Job End Date Not on file Not on file Not on file Not on file documented as of this encounter Plan of Treatment Not on file documented as of this encounter Results * XR SHOULDER 2+ VW LEFT (11/25/2011 7:10 PM CDT) Anatomical Region Laterality Modality Upper Extremity Computed Radiogr aphy 11/25/2011 6:55 PM CDT Narrative 11/26/2011 10:08 AM CDT Description: AP views of the left shoulder with internal and external humeral rotation demonstrate and undisplaced metaphyseal fracture of the proximal left humerus. Otherwise, the shoulder articulation appears intact. Clothing artifact overlies the region of interest. IMPRESSION greenstick fracture of the proximal left humeral metaphysis Procedure Note Danilo Schneider MD - 11/26/2011 Description: AP views of the left shoulder with internal and external humeral rotation demonstrate and undisplaced metaphyseal fracture of the proximal left humerus. Otherwise, the shoulder articulation appears intact. Clothing artifact overlies the region of interest. IMPRESSION greenstick fracture of the proximal left humeral metaphysis Moraima Haynes MD DIAGNOSTIC IMAGING ORDERABLE S Final Result * XR ELBOW 2 VW LEFT (11/25/2011 7:10 PM CDT) Anatomical Region Laterality Modality Upper Extremity Computed Radiogr aphy 11/25/2011 6:55 PM CDT Narrative 11/26/2011 10:03 AM CDT Description: AP and lateral views of the left elbow show no acute fracture or deformity no fat pad elevation is appreciated. Clothing artifact overlies the region of interest. IMPRESSION negative for fracture of the left elbow Procedure Note Danilo Schneider MD - 11/26/2011 Description: AP and lateral views of the left elbow show no acute fracture or deformity no fat pad elevation is appreciated. Clothing artifact overlies the region of interest. IMPRESSION negative for fracture of the left elbow Moraima Haynes MD DIAGNOSTIC IMAGING ORDERABLE S Final Result documented in this encounter Visit Diagnoses Diagnosis Pain, acute due to trauma Acute pain due to trauma Pain, acute due to trauma Acute pain due to trauma Pain, acute due to trauma Acute pain due to trauma documented in this encounter Care Teams Prop Drawer Relationship Specialty Start Date End Date Ruby Monae MD [address] [place] [id number] PCP - General 12/22/04 documented as of this encounter
--- OUTSIDE RECORDS SUMMARY | 2025-05-27 16:01 | XMS_ITS | Clinical Summary ---
Author Organization [facility] Address [address] [place] [address] Phone Care Team Providers Care Financial Officer Name Role Phone Ruby Monae MD Primary Care Provider +1- [phone] Allergies No known active allergies Medications No known medications Active Problems Problem Noted Date Diagnosed Date Buckle fracture of radius 12/01/2011 Closed fracture of left proximal humerus 012 Immunizations Immunization Administration Dates Next Due (M-M-R II/PRIORIX)(12 MO UP) MEASLES, MUMPS AND RUBELLA VIRUS VACCINE, 0.5 ML IM/SUBCUT 03/29/2002 (PFIZER)(12 YR UP) COVID-19 VACCINE - EMERGENCY USE AUTHORIZATION, MRNA, [id number](PF) 30 MCG/0.3 ML IM SUSP 03/13/2021,02/21/2021 (VARIVAX)(12 MOS UP)VARICELL A VIRUS VACCINE (PF) 0.5 ML, SUB CUT 03/29/2002 Dt Dtp Dtap Vaccine 06/28/2002, 2,2001,2000 HIB, Unspecified Formulation 06/28/2002, 2001,2001,2000 Hepatitis B Vaccine 2001,2001,2000 IPV/OPV 03/29/2002,2001,2001 Pneumococcal 7-valent conjug ate vaccine IM 08/13/2002,06/28/2002,2001 Social History Tobacco Use Types Packs/Day Years Used Date Smoking Tobacco: Never Smokeless Tobacco: Never Alcohol Use Standard Drinks/Week Comments No 0 (1 standard drink = 0.6 oz pur e alcohol) Comments No Sex and Gender Information Value Date Recorded Sex Assigned at Not on file 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 Gender Identity Not on file Sexual Orientation Not on file Occupation Industry Job Start Date Job End Date Not on file Not on file Not on file Not on file Last Filed Vital Signs Vital Sign Reading Time Taken Comments Blood Pressure 99/67 05/10/2012 8:37 PM CDT Pulse 78 05/10/2012 9:34 PM CDT Temperature 36.3 C (97.4 F) 05/10/2012 8:37 PM CDT Respiratory Rate 18 05/10/2012 9:34 PM CDT Oxygen Saturation 98% 05/10/2012 9:34 PM CDT Inhaled Oxygen Concentration - - Weight 64.9 kg (143 lb) 05/10/2012 8:37 PM CDT Height 154.9 cm (5' 1 ) 01/07/2012 12:39 PM CDT Body Mass Index - - Plan of Treatment Health Maintenance Due Date Last Done Comments CERVICAL CANCER SCREENING 2022 HPV/Cotest (21-29) 2022 PAP SMEAR 2022 DTAP/TDAP/TD VACCINES (7 - T d or Tdap) 04/20/2024 04/20/2014, 01/01/2006, 06/28/2002, Additional history exists INFLUENZA VACCINE (#1) 2025 COVID-19 Vaccine (2024-2 6 season) 2025 03/13/2021, 02/21/2021 HEPATITIS B VACCINES Completed 2001, 2001, 2001 HPV VACCINES Completed 03/16/2018, 10/16, 09/10/2017 Insurance [employer] C7 Care Teams Financial Officer Relationship Specialty Start Date End Date Ruby Monae MD [address] [place] [address] PCP - General 09/04/04
--- OUTSIDE RECORDS SUMMARY | 2025-05-27 16:01 | XMS_ITS | Encounter Summary ---
Author Organization [facility] Address [address] [place] [address] Care Team Providers Care Guitar Maker Name Role Phone Ruby Monae MD Primary Care Provider +1- [phone] Encounter Details Date Type Department Care Team (Latest Contact Info) Description 09/04/2004 Outpatient Historical [facility] [address] [place] [address] Ruby Monae MD [address] [place] [address] URIN TRACT INFECTION NOS (Primary Dx) Social History Tobacco Use Types Packs/Day Years Used Date Smoking Tobacco: Never Assessed Comments Unknown Sex and Gender Information Value Date Recorded Sex Assigned at Not on file 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
--- OUTSIDE RECORDS SUMMARY | 2025-05-27 16:01 | XMS_ITS | Encounter Summary ---
Author Organization [facility] Address 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
--- OUTSIDE RECORDS SUMMARY | 2025-05-27 16:02 | XMS_ITS | Encounter Summary ---
Author Organization [facility] Address [address] [place] [address] Care Team Providers Care Food Analyst Name Role Phone Ruby Monae MD Primary Care Provider +1- [phone] Reason for Referral * Outpatient Services (Routine) - Closed Specialty Diagnoses / Procedures Referred By Mica núñez Referred To Contact Radiology Diagnoses Varicose veins of leg with swelling Procedures US DUPLEX ARTERIAL LEG RIGHT Zoila Trevino FNP [address] [place] [address] Phone: tel: fax: [facility] [address] [place] [address] Phone: tel: fax: Referral ID Status Reason Start Date Expiration Date Visits Re quested Visits Authorized [id number] Closed 11/30/2012 12/31/2013 1 1 Encounter Details Date Type Department Care Team (Latest Contact Info) Description 11/30/[address] 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 Gender Identity Not on file Sexual Orientation Not on file Occupation Industry Job Start Date Job End Date Not on file Not on file Not on file Not on file documented as of this encounter Plan of Treatment Not on file documented as of this encounter Results * US DUPLEX ARTERIAL LEG RIGHT (12/08/2012 4:43 PM CDT) Anatomical Region Laterality Modality Lower Extremity Ultrasound 12/08/2012 4:00 PM CDT Narrative 12/09/2012 10:19 AM CDT PROCEDURE Right LOWER EXTREMITY ARTERIAL DOPPLER, 08 December 2012 DESCRIPTION Flow velocities measured in the arterial system of the right lower extremity show no focal acceleration to suggest hemodynamically significant stenosis. No significant atherosclerotic plaque formation is seen at this time. There is triphasic flow noted throughout. IMPRESSION negative for hemodynamically significant stenosis Procedure Note Danilo Schneider MD - 12/09/2012 PROCEDURE Right LOWER EXTREMITY ARTERIAL DOPPLER, 08 December 2012 DESCRIPTION Flow velocities measured in the arterial system of the right lower extremity show no focal acceleration to suggest hemodynamically significant stenosis. No significant atherosclerotic plaque formation is seen at this time. There is triphasic flow noted throughout. 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
--- OUTSIDE RECORDS SUMMARY | 2025-05-27 16:02 | XMS_ITS | Encounter Summary ---
Author Organization [facility] Address [address] [place] [address] Care Team Providers Care Jet Engine Mechanic Name Role Phone Ruby Monae MD Primary Care Provider +1- [phone] Encounter Details Date Type Department Care Team (Late st Contact Info) Description 08/18/2012 Ancillary Orders [facility] Admitting [address] [place] [address] Renetta Watson, [facility] [address] [place] [address] Left knee pain Social History Tobacco Use Types Packs/Day Years Used Date Smoking Tobacco: Never Smokeless Tobacco: Never Alcohol Use Standard Drinks/Week Comments No 0 (1 standard drink = 0.6 oz pur e alcohol) Comments No Sex and Gender Information Value Date Recorded Sex Assigned at Not on file 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
--- OUTSIDE RECORDS SUMMARY | 2025-05-27 16:02 | XMS_ITS | Clinical Summary ---
Author Organization [facility] Address [address] [facility] [address] [place] [address] Phone Care Team Providers Care Welding Machine Operator Thermit Name Role Phone Ruby Monae MD Primary Care Provider +1- [phone] Allergies Active Allergy Reactions Criticality Noted Date Comments Wheat Rash Low 02/02/2025 Medications No known medications Active Problems Problem Noted Date Diagnosed Date Buckle fracture of radius 12/01/2011 Closed fracture of left proximal humerus 012 Encounters Date Type Department Care Team Description 04/17/2025 Patient Outreach [facility] [address] [place] [address] Ricardo Vyas Housing Assistance; Utilities Assistance 03/29/2025 External Device Data STL ABSTRACTION Provider, Abstract 03/28/2025 External Device Data STL ABSTRACTION Provider, Abstract 03/02/2025 9:00 AM CDT Work Comp [facility] [address] [place] [address] Ishan Godwin MD Sprain of anterior talofibular ligament of left ankle, subsequent encounter (Primary Dx); Encounter related to worker's compensation claim 02/28/2025 External Device Data STL ABSTRACTION Provider, Abstract from Last 3 Months Immunizations Immunization Administration Dates Next Due (M-M-R II/PRIORIX)(12 MO UP) MEASLES, MUMPS AND RUBELLA VIRUS VACCINE, 0.5 ML IM/SUBCUT 03/29/2002 (PFIZER)(12 YR UP) COVID-19 VACCINE - EMERGENCY USE AUTHORIZATION, MRNA, [id number](PF) 30 MCG/0.3 ML IM SUSP 03/13/2021,02/21/2021 (VARIVAX)(12 MOS UP)VARICELL A VIRUS VACCINE (PF) 0.5 ML, SUB CUT 03/29/2002 Dt Dtp Dtap Vaccine 06/28/2002, 2,2001,2000 HIB, Unspecified Formulation 06/28/2002, 2001,2001,2000 Hepatitis B Vaccine 2001,2001,2000 IPV/OPV 03/29/2002,2001,2001 Pneumococcal 7-valent conjug ate vaccine IM 08/13/2002,06/28/2002,2001 Social History Tobacco Use Types Packs/Day Years Used Date Smoking Tobacco: Never Smokeless Tobacco: Never Tobacco Cessation:Counseling Given: Not Answered Alcohol Use Standard Drinks/Week Comments No 0 (1 standard drink = 0.6 oz pur e alcohol) Comments Unknown Sex and Gender Information Value Date Recorded Sex Assigned at Not on file Legal Sex Female 2:36 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 Gender Identity Not on file Sexual Orientation Not on file Last Filed Vital Signs Vital Sign Reading Time Taken Comments Blood Pressure 118/76 03/02/2025 9:23 AM CDT Pulse - - Temperature - - Respiratory Rate - - Oxygen Saturation - - Inhaled Oxygen Concentration - - Weight 150.5 kg (331 lb 12.8 oz) 03/02/2025 9:23 AM CDT Height 170.2 cm (5' 7 ) 03/02/2025 9:23 AM CDT Body Mass Index 51.97 03/02/2025 9:23 AM CDT Plan of Treatment Health Maintenance Due Date Last Done Comments DTAP/TDAP/TD VACCINES (5 - Tdap) 2012 06/28/2002, 2001, 2001, Additional history exists HPV VACCINES (1 - 3-dose series) 2016 CERVICAL CANCER SCREENING 2022 HPV/Cotest (21-29) 2022 PAP SMEAR 2022 INFLUENZA VACCINE (#1) 2025 COVID-19 Vaccine (3 - 2024-2 6 season) 2025 03/13/2021, 02/21/2021 HEPATITIS B VACCINES Completed 2001, 2001, 2001, Additional history exists Insurance [employer]IVER [employer]NIS Care Teams Welding Machine Operator Thermit Relationship Specialty Start Date End Date Ruby Monae MD [address] [place] [address] PCP - General 09/04/04
--- OUTSIDE RECORDS SUMMARY | 2025-05-27 16:02 | XMS_ITS | Encounter Summary ---
Author Organization [facility] Address [address] [place] [address] Care Team Providers Care Sales Project Engineer Name Role Phone Ruby Monae MD Primary Care Provider +1- [phone] Encounter Details Date Type Department Care Team (Latest Contact Info) Description 10/24/2015 Ancillary Orders [facility] Centralized Scheduling [address] [place] [address] Zoila Trevino, [facility] [address] [place] [address] Abdominal pain (Primary Dx) Social History Tobacco Use Types Packs/Day Years Used Date Smoking Tobacco: Never Smokeless Tobacco: Never Alcohol Use Standard Drinks/Week Comments No 0 (1 standard drink = 0.6 oz pur e alcohol) Comments No Sex and Gender Information Value Date Recorded Sex Assigned at Not on file 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
--- OUTSIDE RECORDS SUMMARY | 2025-05-27 16:02 | XMS_ITS | Encounter Summary ---
Author Organization [facility] Address [address] [place] [address] Care Team Providers Care Wire Temperer Name Role Phone Ruby Monae MD Primary Care Provider [phone]- [phone] Reason for Referral * Outpatient Services (Routine) - Closed Specialty Diagnoses / Procedures Referred By Contac t Referred To Contact Radiology Diagnoses Right lower quadrant pain Procedures US PELVIS COMPLETE Ruby Monae MD [address] [place] [address] Phone: tel: fax: [facility] [address] [place] [address] Phone: tel: fax: Referral ID Status Reason Start Date Expiration Date V isits Requested Visits Authorized [id number] Closed [facility] CTS to Schedule (SGF) 10/22/2017 11/22/2018 1 1 RIOR DESIGN PROFESSIONAL Encounter Details Date Type Department Care Team (Latest Contact Info) Description 10/22/2017 Ancillary Orders [facility] Centralized Scheduling [address] [place] [address] Ruyb Monae MD [address] [place] [address] Right lower quadrant pain Social History Tobacco Use Types Packs/Day Years Used Date Smoking Tobacco: Never Smokeless Tobacco: Never Alcohol Use Standard Drinks/Week Comments No 0 (1 standard drink = 0.6 oz pur e alcohol) Comments No Sex and Gender Information Value Date Recorded Sex Assigned at Not on file Legal Sex Female 5:13 AM INTERIOR DESIGN PROFESSIONAL Gender Identity Not on file Sexual Orientation Not on file Occupation Industry Job Start Date Job End Date Not on file Not on file Not on file Not on file documented as of this encounter Plan of Treatment Not on file documented as of this encounter Results * US PELVIS COMPLETE (10/23/2017 5:02 PM INTERIOR DESIGN PROFESSIONAL) Anatomical Region Laterality Modality Pelvis Ultrasound 10/23/2017 5:02 PM INTERIOR DESIGN PROFESSIONAL Impressions 10/23/2017 5:44 PM INTERIOR DESIGN PROFESSIONAL IMPRESSION: Please see below. Exam: US PELVIS COMPLETE Date/Time of Exam: 10/23/2017 5:02 PM Reason For Exam: Right lower quadrant pain. Findings: There are no comparisons. The uterus is 7.8 x 3.6 x 4.8 cm in size. The uterus is smooth in contour. The myometrium is unremarkable. The endometrium is 4.2 mm in thickness. No free fluid is noted in the pelvis. The right ovary could not be identified. No abnormality in the region of the right adnexa was appreciated. The left ovary is 2.7 x 2.3 x 2.5 cm in size with a volume of 8.0 mL and is unremarkable in appearance. IMPRESSION: 1. No significant ultrasound abnormality of the uterus or left ovary is identified. 2. The right ovary could not be visualized. No abnormality in the region of the right adnexa was appreciated. Narrative Procedure Note Charlotte Darby MD - 10/23/2017 IMPRESSION: Please see below. Exam: US PELVIS COMPLETE Date/Time of Exam: 10/23/2017 5:02 PM Reason For Exam: Right lower quadrant pain. Findings: There are no comparisons. The uterus is 7.8 x 3.6 x 4.8 cm in size. The uterus is smooth in contour. The myometrium is unremarkable. The endometrium is 4.2 mm in thickness. No free fluid is noted in the pelvis. The right ovary could not be identified. No abnormality in the region of the right adnexa was appreciated. The left ovary is 2.7 x 2.3 x 2.5 cm in size with a volume of 8.0 mL and is unremarkable in appearance. IMPRESSION: 1. No significant ultrasound abnormality of the uterus or left ovary is identified. 2. The right ovary could not be visualized. No abnormality in the region of the right adnexa was appreciated. us Ruby Monae MD ORDERABLES Final Resu lt documented in this encounter Visit Diagnoses Diagnosis Right lower quadrant pain Abdominal pain, right lower quadrant Right lower quadrant pain Abdominal pain, right lower quadrant documented in this encounter Care Teams Wire Temperer Relationship Specialty Start Date End Date Ruby Monae MD [address] [place] [address] PCP - General 09/04/04 documented as of this encounter
--- OUTSIDE RECORDS SUMMARY | 2025-05-27 16:02 | XMS_ITS | Encounter Summary ---
Author Organization [facility] [employer] Address [address] [place] [address] Care Team Providers Care Process Eng Name Role Phone Ruby Monae MD Primary Care Provider +1- [phone] Encounter Details Date Type Department Care Team (Late st Contact Info) Description 11/27/2011 Ancillary Orders [facility] [address] [place] [address] Moraima Haynes MD [address] [place] [address] Trauma Social History Tobacco Use Types Packs/Day Years Used Date Smoking Tobacco: Never Assessed Alcohol Use Standard Drinks/Week Comments No 0 (1 standard drink = 0.6 oz pur e alcohol) Comments No Sex and Gender Information Value Date Recorded Sex Assigned at Not on file 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 jaw - transcribed in Epic - Impressions 11/28/2011 9:22 AM CDT fracture Narrative 11/28/2011 9:22 AM CDT PA, oblique and lateral views of the left wrist show essentially undisplaced buckle fracture of the dorsal cortex of the distal radial metaphysis. Procedure Note Danilo Schneider MD - 12/05/2011 PA, oblique and lateral views of the left wrist show essentially undisplaced buckle fracture of the dorsal cortex of the distal radial metaphysis. IMPRESSION fracture us Moraima Haynes MD DIAGNOSTIC IMAGING ORDERABLE S Edited Result - Final documented in this encounter Visit Diagnoses Diagnosis Trauma Injury, other and unspecified, unspecified site Trauma Injury, other and unspecified, unspecified site documented in this encounter Care Teams Process Eng Relationship Specialty Start Date End Date Ruby Monae MD [address] [place] [address] PCP - General 09/04/04 documented as of this encounter
--- OUTSIDE RECORDS SUMMARY | 2025-05-27 16:02 | XMS_ITS | Encounter Summary ---
Author Organization [facility] Address [address] [place] [address] Care Team Providers Care Emergency Veterinary Assistant Name Role Phone Ruby Monae MD Primary Care Provider +1- [phone] Encounter Details Date Type Department Care Team (Late st Contact Info) Description 08/18/2012 Ancillary Orders [facility] Admitting [address] [place] [address] Renetta Watson, [facility] [address] [place] [address] Left knee pain Social History Tobacco Use Types Packs/Day Years Used Date Smoking Tobacco: Never Smokeless Tobacco: Never Alcohol Use Standard Drinks/Week Comments No 0 (1 standard drink = 0.6 oz pur e alcohol) Comments No Sex and Gender Information Value Date Recorded Sex Assigned at Not on file 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 Gender Identity Not on file Sexual Orientation Not on file Occupation Industry Job Start Date Job End Date Not on file Not on file Not on file Not on file documented as of this encounter Plan of Treatment Not on file documented as of this encounter Results * XR KNEE 3 VW LEFT (08/18/2012 4:15 PM FINANCIAL ADVISOR) Anatomical Region Laterality Modality Lower Extremity Computed Radiogr aphy 08/18/2012 4:13 PM FINANCIAL ADVISOR Narrative 08/19/2012 9:05 AM FINANCIAL ADVISOR PROCEDURE XR KNEE, three views 18 August 2012 DESCRIPTION AP, oblique, and lateral views of the left knee show no fracture or deformity. No swelling of the suprapatellar bursa is seen. Unfused epiphyses are noted in the anterior tibial tubercle appears normal. IMPRESSION normal left knee views Procedure Note Danilo Schneider MD - 08/19/2012 PROCEDURE XR KNEE, three views 18 August 2012 DESCRIPTION AP, oblique, and lateral views of the left knee show no fracture or deformity. No swelling of the suprapatellar bursa is seen. Unfused epiphyses are noted in the anterior tibial tubercle appears normal. IMPRESSION normal left knee views us External Provider Mtnv DIAGNOSTIC IMAGING ORDERA BLES Final Result documented in this encounter Visit Diagnoses Diagnosis Left knee pain Pain in joint, lower leg Left knee pain Pain in joint, lower leg documented in this encounter Care Teams Emergency Veterinary Assistant Relationship Specialty Start Date End Date Ruby Monae MD [address] [place] [address] PCP - General 09/04/04 documented as of this encounter
--- NOTE | 2025-05-27 16:08 | ECG_ITS ---
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 Measurements Intervals [place] Rate: 132 P: 35 HI: 132 QRS: 24 QRSD: 90 T: 58 QT: 332 QTc: 493 Interpretive Statements SINUS TACHYCARDIA NONSPECIFIC ST & T-WAVE ABNORMALITY ABNORMAL RHYTHM ECG No previous ECG available for comparison Electronically Signed On 05-27-2025 18:46:36 CDT by Francisco Carson M.D. [email or web address] [id number]
[2025-05-27 16:10] VITALS: BP 107/72; PULSE 137; RESP 16; TEMP 36.9; O2SAT 95; BMI 51.7
--- NOTE | 2025-05-27 16:48 | W.ED.DIZZY ---
HPI - Dizziness General: Chief Complaint: Dizziness Stated Complaint: dizzy Time Seen by Provider: 05/27/25 16:48 History of Present Illness: HPI Narrative: Patient is a 25-year-old female reports to the emergency room with racing heart, dizziness. 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 She stated was nice and cool in the room, when she started noting her palpitations. She did have some the knee just 30 minutes prior to these feelings. She feels as if she is going to pass out. She has never had this issue in the past. She believes that she is appropriately hydrated. No dysuria, no fevers. No sick contact. Associated symptoms: Reports nausea, nasal congestion and palpitations; Denies chest pain, chills, ear discharge, headache(s), syncope or vomiting Related Data Previous Rx's ?Medication ?Instructions ?Recorded cefdinir 300 mg capsule 300 mg PO BID 10 days #20 caps 05/27/25 Allergies Allergy/AdvReac Type Severity Reaction Status Date / Time wheat Allergy Intermediate ALGY-Rash Verified 05/27/25 16:13 Review of Systems Const: Denies: fever(s), chills or body aches Eyes: Reports: eye discharge and eye redness; Denies: change in vision or blurry vision ENMT: Reports: nasal congestion and post nasal drip; Denies: throat pain, ear or mastoid pain, ear discharge, nasal discharge or sinus pain Card: Reports: palpitations and lightheadedness; Denies: chest pain or syncope Resp: Denies: dyspnea, productive cough, non-productive cough or wheezing GI: Reports: nausea; Denies: abdominal pain, vomiting or diarrhea Skin/Breast: Denies: rash Neuro: Reports: dizziness; Denies: headache(s) [facility] ED PFSH: Surgical History Hx laparoscopic cholecystectomy 04/18/24 Dr Dixon Family History Mother Diabetes Heart disease Cancer pancreatic & breast cancer Father Heart disease Social History Smoking and tobacco/nicotine status: never used tobacco/nicotine Female Reproductive History: Date of last menstrual period: 05/21/25 Physical Exam Const: COMMON NORMALS: no acute distress, patient oriented x3, alert and well nourished HENMT: COMMON NORMALS: external ears normal, EAC's normal, TM's normal bilaterally, Normal external nose present and Normal nasal mucous membranes and turbinates present NOSE: Normal external nose present and Normal nasal mucous membranes and turbinates present EXTERNAL EAR: Yes external ears normal EXTERNAL AUDITORY CANAL: EAC's normal TYMPANIC MEMBRANE: TM's normal bilaterally Eye: COMMON NORMALS: Equal, round and reactive pupils present, EOMs intact bilaterally and conjunctivae normal EYELID: eyelids normal CONJUNCTIVA: Yes conjunctivae normal SCLERA: sclerae normal PUPIL: Yes Equal, round and reactive pupils present OTHER: watery eyes Lymph: LYMPHATIC: no lymphadenopathy noted Resp: COMMON NORMALS: normal respiratory effort and clear to auscultation bilaterally AUSCULTATION: clear to auscultation bilaterally Cardio: COMMON NORMALS: regular rhythm RATE: tachycardic RHYTHM: regular rhythm GI: COMMON NORMALS: Normal to inspection, nondistended, normoactive bowel sounds present : COMMON NORMALS: Yes no CVA tenderness BLADDER/KIDNEY EXAM: Yes no CVA tenderness Back/Pelvis: COMMON NORMALS: no CVA tenderness Neuro: COMMON NORMALS: patient oriented x3 SENSORIUM/ORIENTATION: Yes alert SPEECH: speech normal GAIT: Yes Normal gait present Psych: COMMON NORMALS: cooperative Skin: RASHES: no rashes Course Vital Signs: Vital signs: Vital Signs Temperature 98.4 F 05/27/25 16:10 Pulse Rate 91 05/27/25 19:30 Respiratory Rate 18 05/27/25 19:30 Blood Pressure 98/76 05/27/25 19:30 Pulse Oximetry 96 05/27/25 19:30 Oxygen Delivery Me thod Room Air 05/27/25 18:16 MDM - Dizziness Medical Decision Making Patient is a 25-year-old female that was running 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 She was quite tachycardic on presentation. She did appear to have association to hypovolemia. IV fluids were given. Urinalysis was significant for pyuria despite any findings on physical examination. She was given Rocephin, and cefdinir was sent to the pharmacy while culture is pending. Her pain is improved with IV fluids. I did offer Norflex and Toradol however she states she would take a Tylenol at home. All of her questions answered satisfaction Medical Records I reviewed the patient's medical records. Lab Data I reviewed the patient's lab results. 05/27/25 16:38 05/27/25 16:38 Laboratory Results WBC 6.79 10^3/uL (3.29-11.43) 05/27/25 16:38 RBC 4.68 10^6/uL (3.85-5.65) 05/27/25 16:38 Hgb 13.50 g/dL (11.27-16.99) 05/27/25 16:38 Hct 40.7 % (36-47) 05/27/25 16:38 MCV 87.0 fl (85-98) 05/27/25 16:38 MCH 28.8 pg (27-33) 05/27/25 16: MCHC 33.2 g/dL (30-55) 05/27/25 16:38 RDW 12.9 % (12.1-15.1) 05/27/25 16:38 Plt Count 336 10^3/cmm (157-399) 05/27/25 16:38 MPV 10.4 fL (7.4-10.4) 05/27/25 16:38 Neut % (Auto) 65.6 % 05/27/25 16:38 Lymph % (Auto) 27.2 % 05/27/25 16:38 [place] % (Auto) 5.9 % 05/27/25 16:38 Eos % (Auto) 0.9 % 05/27/25 16:38 Baso % (Auto) 0.3 % 05/27/25 16:38 Neut # (Auto) 4.45 10^3/uL (1.8-7.7) 05/27/25 16:38 Lymph # (Auto) 1.9 10^3/uL (0.8-4.8) 05/27/25 16:38 [place] # (Auto) 0.4 10^3/uL (0.2-0.9) 05/27/25 16:38 Eos # (Auto) 0.1 10^3/uL (0.0-0.8) 05/27/25 16:38 Baso # (Auto) 0.0 10^3/uL (0.0-0.1) 05/27/25 16:38 Nucleated RBC % (auto) 0 % 05/27/25 16:38 Nucleated RBCs # 0.0 /100WBC 05/27/25 16:38 Sodium 138 mmol/L (136-145) 05/27/25 16:38 Potassium 3.7 mmol/L (3.5-5.1) 05/27/25 16:38 Chloride 102 mmol/L (98-107) 05/27/25 16:38 Carbon Dioxide 22 mmol/L (22-29) 05/27/25 16:38 Anion Gap 17.7 (5-19) 05/27/25 16:38 BUN 7 mg/dL (6-20) 05/27/25 16:38 Creatinine 0.6 mg/dL (0.5-0.9) 05/27/25 16:38 GFR Calculation 122.8 mL/min (90-130) 05/27/25 16:38 Glucose 158 mg/dL (65-115) H 05/27/25 16:38 Calculated Osmolality 287 mOsm/kg (285-295) 05/27/25 16:38 Calcium 9.5 mg/dL (8.5-10.5) 05/27/25 16:38 Total Bilirubin 0.3 mg/dL (0.15-1.2) 05/27/25 16:38 AST 26 U/L (0-32) 05/27/25 16:38 ALT 33 U/L (0-33) 05/27/25 16:38 Alkaline Phosphatase 57 U/L (35-105) 05/27/25 16:38 Total Protein 8.2 g/dL (6.6-8.7) 05/27/25 16:38 Albumin 4.2 g/dL (3.5-5.2) 05/27/25 16:38 Globulin 4.0 g/dL (1.3-4.6) 05/27/25 16:38 Urine Color Yellow (Yellow) 05/27/25 17:04 Urine Appearance Cloudy (CLEAR) A 05/27/25 17:04 Urine pH 5.5 (5-7) 05/27/25 17:04 Ur Specific [place] 1.022 (1.005-1.030) 05/27/25 17:04 Urine Protein Trace (Negative) A 05/27/25 17:04 Urine Glucose (UA) Negative (Normal) 05/27/25 17:04 Urine Ketones Trace (Negative) 05/27/25 17:04 Urine Blood Negative (Negative) 05/27/25 17:04 Urine Nitrate Positive (Negative) A 05/27/25 17:04 Urine Bilirubin Negative (Negative) 05/27/25 17:04 Urine Urobilinogen 0.2 mg/dL (Negative) 05/27/25 17:04 Ur Leukocyte Esterase Trace (Negative) A 05/27/25 17:04 Urine RBC 0-2 /hpf (0-2) 05/27/25 17:04 Urine WBC 11-20 /hpf (0-5) H 05/27/25 17:04 Ur Squamous Epith Cells 6-10 /hpf (0-5) 05/27/25 17:04 Amorphous Sediment Not Reportable 05/27/25 17:04 Urine Bacteria 4+ /hpf (NONE) H 05/27/25 17:04 Hyaline Casts 1.21 /lpf 05/27/25 17:04 Urine Opiates Screen Negative ng/mL (Negative) 05/27/25 17:04 Ur Barbiturates Screen Negative ng/mL (Negative) 05/27/25 17:04 Ur Phencyclidine Scrn Negative ng/mL (Negative) 05/27/25 17:04 Ur Amphetamines Screen Negative ng/mL (Negative) 05/27/25 17:04 U Benzodiazepines Scrn Negative ng/mL (Negative) 05/27/25 17:04 Urine Cocaine Screen Negative ng/mL (Negative) 05/27/25 17:04 U Marijuana (THC) Screen Negative ng/mL (Negative) 05/27/25 17:04 No radiology studies performed this visit Discharge Plan Discharge Patient Disposition: Home Clinical Impression: Pyuria, Hypovolemia Condition: Stable Prescriptions: New cefdinir 300 mg capsule 300 mg PO BID 10 Days Qty: 20 0RF Discharge Orders: Discharge ED (Routine); Ordered 05/27/25 Ordered By: Viktoriya Pena Referrals: Catherine Okeefe, [facility] [Primary Care Provider, Nurse Practitioner] Discharge Diet: Usual diet Discharge Activity: Resume usual activity Patient Instructions: Urinary Tract Infection in Women (DC), Patient Portal & Leila Instructions Activity Restrictions/Additional Instructions: - Probiotic or active culture yogurt to avoid infectious diarrhea -Drink 84 ounces of noncaffeinated beverage daily -Your antibiotics have been sent to the pharmacy. Your antibiotics given today, will cover you until 8 AM. Please obtain these in a.m. and take as directed - Your urine culture is pending. You will have more information in approximately 48 hours. In the meantime, we are treating you for UTI. - Also looks like you had association of dehydration. This could be from too many caffeinated beverages as well. No other findings were concerning at this time. - Follow-up with your primary care physician regarding today's visit. -Return to ED with worsening symptoms or ongoing symptoms that have reoccurred, fever greater than 100.4 Gy Fahrenheit Print Language: Greek Coding Level of Care Code ED Director Of Diversity And Inclusion for Ayden Hernández
[2025-05-27 16:56] LABS: Hematocrit 40.7 % (36-47); Hemoglobin 13.50 g/dL (11.27-16.99); Mean Corpuscular HGB Conc 33.2 g/dL (30-55); Mean Corpuscular Hemoglobin 28.8 pg (27-33); Mean Corpuscular Volume 87.0 fl (85-98); Nucleated Red Blood Cells % 0 %; Platelet Count 336 10^3/cmm (157-399); Red Blood Count 4.68 10^6/uL (3.85-5.65); White Blood Count 6.79 10^3/uL (3.29-11.43)
[2025-05-27 17:05] VITALS: BP 112/74; PULSE 121; O2SAT 96
[2025-05-27 17:12] LABS: Alanine Aminotransferase 33 U/L (0-33); Albumin Level 4.2 g/dL (3.5-5.2); Alkaline Phosphatase 57 U/L (35-105); Anion Gap 17.7 (5-19); Aspartate Amino Transferase 26 U/L (0-32); Blood Urea Nitrogen 7 mg/dL (6-20); Calcium 9.5 mg/dL (8.5-10.5); Carbon Dioxide 22 mmol/L (22-29); Chloride 102 mmol/L (98-107); Creatinine Clr Calc Pharmacy 221.0146; Globulin 4.0 g/dL (1.3-4.6); Glucose 158 mg/dL (65-115); Osmolality Calculated 287 mOsm/kg (285-295); Potassium 3.7 mmol/L (3.5-5.1); Sodium 138 mmol/L (136-145); Total Protein 8.2 g/dL (6.6-8.7)
[2025-05-27 17:20] LABS: Glucose Urine UA Negative (Normal); Nitrate Urine Positive (Negative); Specific Gravity, Urine 1.022 (1.005-1.030)
[2025-05-27 17:28] LABS: PCP Screen Urine Negative (Negative)
[2025-05-27 17:29] LABS: Add Urine Microscopic? YES
[2025-05-27 18:16] VITALS: BP 109/71; PULSE 105; RESP 17; O2SAT 95
[2025-05-27] MEDS: cefTRIAXone 1,000 mg SDV 1000 MG IVP (19:15)
[2025-05-27] MEDS: orphenadrine 30 mg/mL Inj 2 mL 60 MG IV (19:15)
[2025-05-27 19:30] VITALS: BP 98/76; PULSE 91; RESP 18; O2SAT 96
== END 2025-05-27 19:31 | disposition home or self-care (01) ==
PROVIDERS: Family Medicine; Emergency Provider Physician Assistant; PCP Nurse Practitioner Family
DX: R82.81 Pyuria (principal); E86.1 Hypovolemia
CPT/HCPCS: 36415; 80053; 80306; 81001; 85025; 87086; 93005; 96361; 96374; 96375; 99284; J0696; J1885; J2360; J7120